=== PATIENT | male | born 1955 | race Caucasian/White ===

== ENCOUNTER 2017-02-18 11:45 | Emergency (ER) | payer SELFPAY ==
[2017-02-18 12:02] VITALS: BP 133/96
--- NOTE | 2017-02-18 12:15 | ER Document Report ---
ED Medical Screen (RME) - General Chief Complaint: Chest Pain > 30 Stated Complaint: CHEST PAIN Time Seen by Provider: 02/18/17 12:00 Notes: Patient is a 61 year old male presenting to the ED for chest pain. Patient has had intermittent pain over the last several weeks. Patient's pain is getting worse and occurring more frequently. Patient's pain is located in the left side of his chest. Patient also states his left arm goes numb and becomes cold with the chest pain. Patient also reports taking lots of BC powders. Patient becomes weak during these episodes of chest pain. Patient's spouse reports that the patient has had some increase in his short term memory loss and also complains of low back and hip pain. I have greeted and performed a rapid initial assessment of this patient. A comprehensive ED assessment and evaluation of the patient, analysis of test results and completion of the medical decision making process will be conducted by additional ED providers. TRAVEL OUTSIDE OF THE [place] IN LAST 30 DAYS: No - Related Data Allergies/Adverse Reactions: No Known Allergies Allergy (Verified 02/18/17 11:57) Past Medical History - Social History Cigarette use (# per day): Yes Renal/ Medical History: Denies: Hx Peritoneal Dialysis - Immunizations Hx Diphtheria, Pertussis, Tetanus Vaccination: No Physical Exam - Vital signs Vitals: Temp Pulse Resp BP Pulse Ox 97.5 F 74 16 133/96 H 97 02/18/17 11:56 02/18/17 11:56 02/18/17 11:56 02/18/17 11:56 02/18/17 11:56 - Notes Notes: GENERAL: Alert, interacts well. No acute distress. LUNGS: Coarse breath sounds bilaterally. Chest wall is non-tender. No respiratory distress. HEART: Regular rate and rhythm. No murmurs, gallops, or rubs. NEUROLOGICAL: Alert and oriented x3. Normal speech. Course - Vital Signs Vital signs: Temp Pulse Resp BP Pulse Ox 97.5 F 74 16 133/96 H 97 02/18/17 11:56 02/18/17 11:56 02/18/17 11:56 02/18/17 11:56 02/18/17 11:56 Scribe Documentation - Scribe Written by Tomasa:: Tomasa Calhoun, 02/18/17 12:17 acting as scribe for :: Jenni
--- NOTE | 2017-02-18 12:42 | RADIOLOGY REPORT (SQ) ---
EXAM DESCRIPTION: CHEST PA/LAT COMPLETED DATE/TIME: 02/18/2017 12:24 pm REASON FOR STUDY: CP COMPARISON: None. EXAM PARAMETERS: NUMBER OF VIEWS: two views TECHNIQUE: Digital Frontal and Lateral radiographic views of the chest acquired. RADIATION DOSE: NA LIMITATIONS: none FINDINGS: LUNGS AND PLEURA: Question 2 cm nodule in the left upper hilum, marked with a chilkat. No fluffy alveolar infiltrates worrisome for edema or pneumonia. No pleural effusion. No pneumothor ax. MEDIASTINUM AND HILAR STRUCTURES: Question 2 cm nodule along the left upper hilum, marked with a circ le. Right hilum, mediastinal structures otherwise unremarkable. HEART AND VASCULAR STRUCTURES: Heart normal size. No evidence for failure. BONES: No acute findings. HARDWARE: None in the chest. OTHER: No other significant finding. IMPRESSION: Question 2 cm nodule left upper hilum. Consider chest CT for followup TECHNICAL DOCUMENTATION: JOB ID: [id number] [employer] All Rights Reserved
[2017-02-18 12:48] LABS: ABSOLUTE BASOPHILS # (AUTO) 0.1 10^3/uL (0.0-0.2); ABSOLUTE EOSINOPHILS # (AUTO) 0.4 10^3/uL (0.0-0.6); ABSOLUTE LYMPHOCYTES (AUTO) 2.1 10^3/uL (0.5-4.7); ABSOLUTE MONOCYTES (AUTO) 0.4 10^3/uL (0.1-1.4); ABSOLUTE NEUT (AUTO) 5.8 10^3/uL (1.7-8.2); BASOPHILS % (AUTO) 0.9 % (0-2); EOSINOPHILS % (AUTO) 4.4 % (0-6); HEMATOCRIT 45.1 % (37.9-51.0); HGB HCT DIFFERENCE -0.1; LYMPHOCYTES % (AUTO) 23.9 % (13-45); MEAN CORPUSCULAR HEMOGLOBIN 31.6 pg (27.0-33.4); MEAN CORPUSCULAR HGB CONC 33.3 g/dL (32.0-36.0); MEAN CORPUSCULAR VOLUME 95 fl (80-97); MONOCYTES % (AUTO) 4.9 % (3-13); RED BLOOD COUNT 4.75 10^6/uL (4.35-5.55); RED CELL DISTRIBUTION WIDTH 13.3 % (11.5-14.0); SEGMENTED NEUTROPHILS % (AUTO) 65.9 % (42-78); WHITE BLOOD COUNT 8.7 10^3/uL (4.0-10.5)
[2017-02-18 13:11] LABS: ALANINE AMINOTRANSFERASE 29 U/L (21-72); ALBUMIN 4.1 g/dL (3.5-5.0); ALKALINE PHOSPHATASE 88 U/L (38-126); ANION GAP 10 (5-19); ASPARTATE AMINO TRANSFERASE 25 U/L (17-59); BILIRUBIN,DIRECT 0.2 mg/dL (0.0-0.4); BILIRUBIN,TOTAL 0.4 mg/dL (0.2-1.3); BLOOD UREA NITROGEN 18 mg/dL (7-20); CALCIUM 10.1 mg/dL (8.4-10.2); CARBON DIOXIDE 24 mmol/L (22-30); CHLORIDE 105 mmol/L (98-107); CREATINE KINASE 56 U/L (55-170); GLUCOSE 116 mg/dL (75-110); POTASSIUM 4.3 mmol/L (3.6-5.0); SODIUM 139.1 mmol/L (137-145); TOTAL PROTEIN 7.2 g/dL (6.3-8.2)
--- NOTE | 2017-02-18 13:15 | ER Document Report ---
ED General - General Mode of Arrival: Ambulatory Information source: Patient TRAVEL OUTSIDE OF THE [place] IN LAST 30 DAYS: No - HPI Patient complains to provider of: Chest Pain Onset: Other - 4 months ago Onset/Duration: Sudden, Intermittent Associated symptoms: Chest pain. denies: Shortness of breath, Sweating <ALEXANDRA DIAL - Last Filed: 02/18/17 14:37> <OLAMIDE DSOUZA - Last Filed: 02/25/17 03:44> - General Chief Complaint: Chest Pain > 30 Stated Complaint: CHEST PAIN Time Seen by Provider: 02/18/17 12:00 Notes: Patient is a 61-year-old male presenting to the emergency department concerned of left-sided chest pain onset approximately 4 months ago. Patient states that this pain has been intermittent about 4-5 days per week for hours at a time. Patient also reports that his left arm is very cold. Patient states his chest is tight right now, but not painful. Patient denies any specific activity worsening or relieving the pain, but sometimes he will take or BC powders to try to relieve the pain. Patient denies any shortness of breath or diaphoresis. Patient admits to smoking daily and [facility]. (ALEXANDRA DIAL) - Related Data Allergies/Adverse Reactions: No Known Allergies Allergy (Verified 02/18/17 11:57) Past Medical History - General Information source: Patient - Social History Smoking Status: Current Every Day Smoker Cigarette use (# per day): Yes Family History: Reviewed & Not Pertinent, Malignancy Patient has suicidal ideation: No Patient has homicidal ideation: No - Past Medical History Cardiac Medical History: Reports: Hx Hypertension - Previously, no medicine now Infectious Medical History: Reports: Hx MRSA - Immunizations Hx Diphtheria, Pertussis, Tetanus Vaccination: No <ALEXANDRA DIAL - Last Filed: 02/18/17 14:37> Review of Systems - Review of Systems Constitutional: No symptoms reported EENT: No symptoms reported Cardiovascular: See HPI, Chest pain - Left Respiratory: No symptoms reported Gastrointestinal: No symptoms reported Genitourinary: No symptoms reported Male Genitourinary: No symptoms reported Musculoskeletal: No symptoms reported Skin: No symptoms reported Hematologic/Lymphatic: No symptoms reported Neurological/Psychological: No symptoms reported -: Yes All other systems reviewed and negative <ALEXANDRA DIAL - Last Filed: 02/18/17 14:37> Physical Exam - Vital signs Interpretation: Normal - General General appearance: Appears well, Alert - HEENT Head: Normocephalic, Atraumatic Eyes: Normal Pupils: PERRL - Respiratory Respiratory status: No respiratory distress Chest status: Nontender Breath sounds: Normal Chest palpation: Normal - Cardiovascular Rhythm: Regular Heart sounds: Normal auscultation Murmur: No - Abdominal Inspection: Normal Distension: No distension Bowel sounds: Normal Tenderness: Nontender Organomegaly: No organomegaly - Back Back: Normal, Nontender - Extremities General upper extremity: Normal inspection, Nontender General lower extremity: Normal inspection, Nontender - Neurological Neuro grossly intact: Yes Cognition: Normal Orientation: AAOx4 Carlos Coma Scale Eye Opening: Spontaneous Carlos Coma Scale Verbal: Oriented [place] Coma Scale Motor: Obeys Commands Carlos Coma Scale Total: 15 Speech: Normal - Psychological Associated symptoms: Normal affect, Normal mood - Skin Skin Temperature: Warm Skin Moisture: Dry Skin Color: Normal <ALEXANDRA DIAL - Last Filed: 02/18/17 14:37> Course - Laboratory Result Diagrams: 02/18/17 12:14 02/18/17 12:14 <ALEXANDRA DIAL - Last Filed: 02/18/17 14:37> - Laboratory Result Diagrams: 02/18/17 12:14 02/18/17 12:14 <OLAMIDE DSOUZA - Last Filed: 02/25/17 03:44> - Re-evaluation Re-evalutation: 02/18/17 14:30 Patient and presents emergency department chief complaint of chest pain. Patient has a primary care physician at the local [facility] he has been having intermittent chest pain for several months at least 4 months. He said they will come on on their own last several hours occasionally going to his left arm which gets numb and tingly and occasionally cold but not currently. He will take a BC powder to and it will go away. He says they happen almost every day for 4 months and today was not any different when it occurred but he called the clinic to tell them for the first time and he said to go the emergency department. He has a history of high blood pressure is not sure whether he was taken off his meds are took his own meds off he does not have a history of SD or cardiac stent he has no difficulty breathing but is a smoker has not been diagnosed with COPD or emphysema denies getting short of breath or diaphoretic with these episodes and they are nonexertional in nature. He denies any syncopal events recent history of travel surgery immobilization DVT or pulmonary emboli on examination he is well-appearing nontoxic no chest pain no shortness of breath vital signs are stable and EKG is stable with no acute ST segment elevation or depression no ongoing chest pain enzymes are negative. Chest x-ray showed positive small nodule. My concern at this point is the patient does not need an emergency CT of the chest to evaluate a pulmonary nodule as he is not symptomatic hypotension or hypoxic. He will however need outpatient follow-up and CT scanning as well as serial x-ray imaging to make sure this is not a cancer with a history of smoking. I had gave me the case finisher talk with the patient get their information and call over to the clinic as well as fax copy of the chest x-ray over there so that they can follow-up with him as an outpatient urgently and get an outpatient CAT scan. The patient and as well as reasons for ED return sooner (OLAMIDE DSOUZA) - Vital Signs Vital signs: Temp Pulse Resp BP Pulse Ox 97.7 F 74 21 H 133/96 H 100 02/18/17 14:47 02/18/17 11:56 02/18/17 14:00 02/18/17 11:56 02/18/17 14:00 - Laboratory Laboratory results interpreted by me: 02/18/17 12:14 Glucose 116 H Discharge <ALEXANDRA DIAL - Last Filed: 02/18/17 14:37> <OLAMIDE DSOUZA - Last Filed: 02/25/17 03:44> - Discharge Clinical Impression: Pulmonary nodule Chest pain Qualifiers: Chest pain type: unspecified Qualified Code(s): R07.9 - Chest pain, unspecified Condition: Stable Disposition: HOME, SELF-CARE Instructions: Chest Pain of Unclear Cause ([facility]) Additional Instructions: Chest Pain of Unclear Cause The exact cause of your chest pain isn't clear. Fortunately, there is no evidence of a dangerous medical condition. Further testing may be required to find the source of the pain. Most often, we find that this pain is coming from the chest wall -- the muscles or rib joints in the chest. But chest pain can come from the lung and lung lining, the esophagus, the heart valves or heart lining, and even the stomach or gallbladder. Rest. Eat lightly until the pain is gone. We may prescribe medicine for pain and inflammation. You should call the physician immediately if the pain radiates to the shoulder, jaw or arms; if you start to run a fever or develop a cough; or if you develop shortness of breath, or other new or alarming symptoms. pulmonary nodule Your chest x-ray showed what is called a pulmonary nodule I discussed this with you and your with a history of smoking is appropriate that you receive an outpatient CT scan of your chest to make sure this is not cancerous in nature. This test does not need to be done emergently in the emergency department the case finisher spoke with you and got information as well as fax a copy of the chest x-ray over to your family doctor's office. Family doctor is supposed to be returning a phone call at which point she will discuss this with the primary care physician. But expect them to get you in to be seen and have an outpatient CAT scan in the next week or so. If this does not occur please return to emergency department also return for increasing worsening or new symptoms Referrals: [facility] [Provider Group] (Call for an appointment to be seen in 4-5 days return for increasing worsening or new symptoms) Scribe Attestation: 02/18/17 14:35 I personally performed the services described in the documentation reviewed the documentation recorded by my scribe in my presence and it accurately and completely records my words and actions (OLAMIDE DSOUZA) Scribe Documentation - Scribe Written by Tomasa:: Tomasa Emmanuel, 02/18/2017 1314 acting as scribe for :: Gonzalo <ALEXANDRA DIAL - Last Filed: 02/18/17 14:37>
[2017-02-18 13:22] LABS: TROPONIN I < 0.012 ng/mL
--- NOTE | 2017-02-18 17:15 | EKG REPORT ---
SEVERITY:- BORDERLINE ECG - SINUS RHYTHM CONSIDER RIGHT VENTRICULAR HYPERTROPHY : Confirmed by: Luly Wallis MD 18-Feb-2017 17:15:01
== END 2017-02-18 14:47 | disposition home or self-care (01) ==
LOC: ER 11:45
DX: R91.1 Solitary pulmonary nodule (principal); R07.9 Chest pain, unspecified; F17.210 Nicotine dependence, cigarettes, uncomplicated
CPT/HCPCS: 36415; 71020; 80053; 82550; 82553; 84484; 85025; 93005; 93010; 99285

== ENCOUNTER → 2017-02-21 | Outpatient (CLI) | payer OTHER ==
--- NOTE | 2017-02-21 09:44 | RADIOLOGY REPORT (SQ) ---
EXAM DESCRIPTION: CT CHEST WITH COMPLETED DATE/TIME: 02/21/2017 9:05 am REASON FOR STUDY: LEFT LUNG MASS R91.8 OTHER NONSPECIFIC ABNORMAL FINDING OF LUNG FIELD COMPARISON: Chest x-ray dated 02/18/2017 TECHNIQUE: CT scan of the chest performed using helical scanning technique with dynamic intravenous contrast injection. Images reviewed with lung, soft tissue and bone windows. Reconstructed coronal and sagittal MPR images reviewed. All images stored on PACS. All CT scanners at this facility use dose modulation, iterative reconstruction, and/or weight based d osing when appropriate to reduce radiation dose to as low as reasonably achievable (ALARA). [facility]: Dose Right [facility]: CareDose [facility]: Dose Right [facility]: Teradose 4D [facility]: Scratch Hard CONTRAST TYPE AND DOSE: 80mL Isovue 370- low osmolar. RENAL FUNCTION: Creatinine 0.8 RADIATION DOSE: 5.77 mGy. LIMITATIONS: None FINDINGS: LUNGS AND PLEURA: Somewhat irregular predominately linear densities are identified in the left upper lung field posteriorly and medially which is felt to correlate with the chest x-ray findin gs. The appearance is most consistent with lung parenchymal scarring however other etiologies cannot be completely excluded. Follow-up studies are recommended in 6 to 12 months to confirm the stabilit y of these findings. Alternatively a PET-CT scan could be performed. Remaining lung saha are anju r. No pleural effusions are identified. No pneumothorax is seen. HILAR AND MEDIASTINAL STRUCTURES: No identified masses or abnormal nodes. HEART AND VASCULAR STRUCTURES: No aneurysm or dissection. No central pulmonary emboli. No pericardi al effusion. HARDWARE: None in the chest. UPPER ABDOMEN: No significant findings. Limited exam. THYROID AND OTHER SOFT TISSUES: No masses. No adenopathy. BONES: No significant finding. OTHER: No other significant finding. IMPRESSION: Somewhat irregular predominately linear densities are identified in the left upper lung field posteriorly and medially as noted above which is felt to correlate with the chest x-ray finding s. The appearance is most consistent with lung parenchymal scarring however other etiologies cannot be completely excluded. Follow-up is recommended as noted above or a PET-CT scan could be performed. Remaining lung saha are clear. Other findings as noted above TECHNICAL DOCUMENTATION: JOB ID: [id number] Quality ID # [id number]: Final reports with documentation of one or more dose reduction techniques (e.g., Au tomated exposure control, adjustment of the mA and/or kV according to patient size, use of iterative reconstruction technique) 2010 [employer]- All Rights Reserved
== END ==
LOC: RAD 08:19
DX: R91.8 Other nonspecific abnormal finding of lung field (principal)
CPT/HCPCS: 71260